=== PATIENT | female | born 1945 | race Caucasian/White ===

== ENCOUNTER 2018-01-02 14:09 | Observation (INO) | payer OTHER ==
--- NOTE | 2018-01-02 14:20 | EDPHY ---
H & P Time Seen by Provider: 01/02/18 14:19 HPI/ROS: CHIEF COMPLAINT: Syncope per patient's daughter HISTORY OF PRESENT ILLNESS: This is a 72-year-old female with a history of hypertension, nephrectomy for benign tumor, and a parathyroid problem, who is visiting [place] from [place]. She was at [place] with her daughter when she complained of dizziness, had some mild tremors, and then appeared to lose consciousness. Her daughter said that she was unresponsive for a matter of minutes, during which time her daughter and her daughter's boyfriend supported her in a seated/semi recumbent position. They tried rubbing her sternum but she remained unresponsive. For a portion of the time that they were supporting her her eyes were open but she did not seem to be aware. When she awakened she complained of dizziness. At the time of her arrival in the emergency department she tells me that she had a spinning sensation earlier that is still present but is improved. She also reports diffuse weakness and mild nausea. She denies chest pain or shortness of breath. She has no cardiac history. She tells me that her heart rate is always low, in the 60s. She is unable to name her medications. She sees a senior infrastructure engineer regularly and states that her kidney function is abnormal. She was once hospitalized with hyperkalemia but this has not been a problem recently. REVIEW OF SYSTEMS: A ten system review of systems was performed and is negative with the exception of the items mentioned in the HPI. Past medical history: 1. Hypertension 2. Parathyroid issue about which she is unable to provide more information 3. Gout 4. Trigeminal neuralgia Past surgical history: 1. Nephrectomy for benign tumor 2. Knee replacement 3. Hip surgery 4. Bowel obstruction requiring surgery Social history: She lives in [place]. She is here with her daughter. She does not use tobacco products. Needed Malian speaker. General Appearance: Alert. Vital signs reviewed. Bradycardic with a rate in the high 40s to mid 50s. Eyes: Pupils equal and round, no conjunctival injection, no discharge. Anicteric. ENT, Mouth: Mucous membranes are moist, no oropharyngeal erythema or edema. Neck: No lymphadenopathy, supple. Respiratory: Lungs are clear to auscultation; no wheezes, rales, or rhonchi. Cardiovascular: Bradycardic and regular; no murmur, rub, or gallop. Gastrointestinal: Abdomen is obese, soft and nontender, no masses or organomegaly, bowel sounds normal. Skin: Warm and dry, no rashes on exposed skin, normal color. Back: Nontender to palpation over the thoracolumbar spine. No CVAT. Extremities: No lower extremity edema, no calf tenderness or swelling. Neurological: Alert and oriented. Moving all four extremities easily and equally. PERRL. EOMI. Facial expressions symmetric. Psychiatric: Normal affect. Source: Patient, Family Constitutional: Initial Vital Signs Temperature (C) 36.2 C 01/02/18 14:09 Heart Rate 48 L 01/02/18 14:09 Respiratory Rate 14 01/02/18 14:09 Blood Pressure 139/75 H 01/02/18 14:09 O2 Sat (%) 98 01/02/18 14:09 O2 Delivery Mode Room Air O2 (L/minute) 2 Allergies/Adverse Reactions: Penicillins Allergy (Verified 01/02/18 14:13) Home Medications: Medication Instructions Recorded Allopurinol [Allopurinol 300 MG 150 mg PO DAILY@12 01/02/18 (RX)] Allopurinol [Allopurinol 300 MG 150 mg PO DAILY@12 01/02/18 (RX)] Calcitriol 0.5 mcg PO DAILY 01/02/18 Ferric Citrate [Auryxia] 1 tab PO TIDMEAL 01/02/18 Fluorometholone 1 drop EACHEYE BID 01/02/18 Labetalol HCl [Trandate 200 mg (*)] 200 mg PO BID 01/02/18 Paricalcitol [Paricalcitol] 1 mcg PO DAILY 01/02/18 Sevelamer Carbonate 800 mg PO TIDMEAL 01/02/18 Zolpidem Tartrate 5 mg PO HS PRN MDD SLEEP 01/02/18 amLODIPine BESYLATE [Norvasc 10 mg 10 mg PO DAILY 01/02/18 (*)] Medical Decision Making - Diagnostics Imaging Results: Imaging Impressions Carotid Doppler Study 01/03/18 05:36 Impression: 1. Widely patent bilateral tortuous carotid arteries. No plaque or flow- limiting stenosis. 2. Bilateral vertebral arteries are patent with antegrade flow. Measurement of carotid stenosis is based on velocity parameters that correlate the residual internal carotid diameter with [place] Symptomatic Carotid Endarterectomy Trial (NASCET) based stenosis levels. Head CT 01/03/18 11:27 Impression: 1. No acute intracranial hemorrhage or evidence of acute ischemia. 2. Minimal atrophy and minimal white matter disease within normal limits for age. ED Course/Re-evaluation: Patient arrived as a cardiac alert. On review of her 12 lead EKG she has some minimal ST elevation inferiorly that does not meet criteria for cardiac alert. She does have abnormal R-wave progression. Dr. Cooper Moreland has reviewed this EKG. He agrees that cardiac alert is not warranted at this point in time. Patient re-evaluated at 2:30 a.m. and at 2:45 p.m.. She continues to deny chest pain or shortness of breath. She has some mild nausea for which she received Zofran 4 mg IV. She denies abdominal pain and her abdomen remains soft and nontender. She does not have dizziness. She was able to stand at the bedside to use the bedside commode and did not feel lightheaded or dizzy. She continues to be bradycardic with heart rate in the 50s. 3:20 p.m.. No change in patient's condition or complaints. She continues to feel diffusely weak with mild nausea. She has not vomited. She denies chest pain. Her creatinine is 3.6. She is unable to provide a baseline number but states that her kidney function is always abnormal. She is not hyperkalemic. I also note that her phosphorus is elevated. Differential Diagnosis: Syncope including but not limited to vasovagal syncope, arrhythmia, dehydration , and blood loss. - Data Points Laboratory Results: Laboratory Results 01/03/18 03:29 01/03/18 03:29 Medications Given: Amlodipine Besylate (Norvasc) 10 mg PO DAILY MYKEL Stop: 07/02/18 08:59 Last Admin: 01/03/18 09:07 Dose: 10 mg Calcitriol (Calcitriol) 0.5 mcg PO DAILY MYKEL Stop: 07/02/18 08:59 Last Admin: 01/03/18 09:07 Dose: 0.5 mcg Fluorometholone (Fml) 1 drop EACHEYE BID MYKEL Stop: 07/01/18 20:59 Last Admin: 01/03/18 21:37 Dose: Not Given Hydralazine HCl (Apresoline) 10 mg PO TID MYKEL Stop: 07/02/18 15:59 Last Admin: 01/03/18 21:39 Dose: 10 mg Sodium Chloride (Ns) 1,000 mls @ 150 mls/hr IV CONT MYKEL Stop: 07/01/18 15:44 Last Admin: 01/02/18 23:00 Dose: 1,000 mls Miscellaneous Medication (Paricalcitol [Paricalcitol]) 1 mcg PO DAILY MYKEL Stop: 07/02/18 08:59 Last Admin: 01/03/18 10:38 Dose: Not Given Trazodone HCl (Trazodone) 100 mg PO HS MYKEL Stop: 07/01/18 20:59 Last Admin: 01/03/18 21:39 Dose: 100 mg Discontinued Medications Labetalol HCl (Trandate) 200 mg PO BID MYKEL Stop: 07/01/18 20:59 Last Admin: 01/02/18 20:13 Dose: 200 mg Miscellaneous Medication (Ferric Citrate [Auryxia]) 1 tab PO TIDMEAL [facility] Stop: 07/01/18 17:59 Last Admin: 01/02/18 17:40 Dose: Not Given Ondansetron HCl (Zofran) 4 mg IVP EDNOW ONE Stop: 01/02/18 14:36 Last Admin: 01/02/18 14:38 Dose: 4 mg Ondansetron HCl (Zofran) 4 mg IVP EDNOW ONE Stop: 01/02/18 15:25 Last Admin: 01/02/18 15:28 Dose: 4 mg Sevelamer HCl (Renagel) 800 mg PO TIDMEAL MYKEL Stop: 07/01/18 17:59 Last Admin: 01/02/18 17:41 Dose: Not Given Point of Care Test Results: Chemistry 01/02/18 14:24 POC Troponin I 0.00 ng/mL ng/mL (0.00-0.08) Departure - Departure Disposition: [facility] Acute Clinical Impression: Bradycardia Syncope Qualifiers: Syncope type: unspecified Qualified Code(s): R55 - Syncope and collapse Condition: Fair
[2018-01-02 14:33] LABS: PLATELET COUNT 268 10^3/uL (150-400)
[2018-01-02] MEDS ORDERED: ONDANSETRON 4 MG/2 ML VIAL IVP ONE ×2 (14:35→15:24)
[2018-01-02 14:44] LABS: INR 1.04 (0.83-1.16); PROTIME(PATIENT) 13.8 SEC (12.0-15.0)
[2018-01-02] MEDS ORDERED: ONDANSETRON 4 MG/2 ML VIAL ONE (15:24)
[2018-01-02] MEDS ORDERED: ONDANSETRON DISINTEGRATING 4 MG TAB PO PRN (15:42)
[2018-01-02] MEDS ORDERED: ACETAMINOPHEN 325 MG TAB PO PRN (15:42)
[2018-01-02] MEDS ORDERED: ONDANSETRON 4 MG/2 ML VIAL IVP PRN (15:42)
[2018-01-02] MEDS ORDERED: NS 1,000 ML IV SCH (15:45)
--- NOTE | 2018-01-02 15:51 | ASMTCMCOM ---
CM Note CM Note Notes: Pt presented to the Emergency Department via EMS s/p possible syncopal event with dizziness, nausea. History includes a nephrectomy secondary to a benign tumor, HTN, arthritis, knee and hip replacements, parathyroid. Pt is visiting her daughter Brittney. She is from [place], [place]. Per her dghtr, the pt lives independently. Offered pt and dghtr support; both currently deny needs. Discharge plan remains unclear at this time. CM will continue to follow. Discharge Plan: To be determined Date Signed: 01/02/2018 03:50 PM Electronically Signed By:Sneha Kim RN
--- NOTE | 2018-01-02 17:08 | PDGENHP ---
History and Physical - Chief Complaint Acute syncope - History of Present Illness Primary compliance manager: Dr. Aram Iqbal, in [facility] HPI: 72-year-old female presenting with acute syncopal episode characterized as complete loss of consciousness and unresponsiveness of several minutes duration without losing her pulse. Per patient and family report, she had been having what was seemingly a normal morning, visiting her daughter here in [place]. They had ventured to [place] and after they had eaten lunch , the patient was walking down to the stream. The patient began to experience some associated dizziness and she walked approximately 10 steps back to the picnic table, sat down, and then visibly lost consciousness and was unresponsive to her daughter. She had some shaking in her bilateral upper extremities, but this did not generalize into tonic-clonic motions. Her daughter attempted to arouse her with sternal rub comma verbal and tactile stimuli, without effect. The patient's son-in-law noted that she continued to have a pulse, but there was question whether she was breathing. She did not appear cyanotic. They kept her from falling backward, and she did not sustain any trauma. After approximately 45 min, her eyes opened, and she experienced lingering confusion, dizziness (characterized as vertiginous), and nausea. At that time, the patient noted that she had experienced urinary incontinence during the episode. Since the episode, the patient has not had any recurrent loss of consciousness, but she has felt persistently weak and nauseous. Of note, the patient did take all of her home medications on the morning of presentation and she did not eat breakfast or consume any fluids prior to her adventure to [place]. She did not engage in any particular physical exertion in [place], but her only oral intake of the day was with her lunch, which she consumed immediately prior to her onset of symptoms. History Information - Allergies/Home Medication List Allergies/Adverse Reactions: Penicillins Allergy (Verified 01/02/18 14:13) Home Medications: Allopurinol [Allopurinol 300 MG (RX)] 150 mg PO DAILY@12 01/02/18 [Last Taken ] Allopurinol [Allopurinol 300 MG (RX)] 150 mg PO DAILY@12 01/02/18 [Last Taken ] Calcitriol 0.5 mcg PO DAILY 01/02/18 [Last Taken 01/01/18] Ferric Citrate [Auryxia] 1 tab PO TIDMEAL 01/02/18 [Last Taken 01/01/18] Fluorometholone 1 drop EACHEYE BID 01/02/18 [Last Taken Unknown] Labetalol HCl [Trandate 200 mg (*)] 200 mg PO BID 01/02/18 [Last Taken 01/02/18 08:00] Paricalcitol [Paricalcitol] 1 mcg PO DAILY 01/02/18 [Last Taken 01/02/18] Sevelamer Carbonate 800 mg PO TIDMEAL 01/02/18 [Last Taken 01/01/18] Zolpidem Tartrate 5 mg PO HS PRN MDD SLEEP 01/02/18 [Last Taken 01/01/18] amLODIPine BESYLATE [Norvasc 10 mg (*)] 10 mg PO DAILY 01/02/18 [Last Taken ] I have personally reviewed and updated: family history, medical history, social history, surgical history - Past Medical History Additional medical history: Chronic kidney disease status post nephrectomy, reportedly "13%". Hypertension - Surgical History Additional surgical history: Nephrectomy. Knee surgery. Hip surgery. Small- bowel obstruction with subsequent mesh. Cornea surgery. Trigeminal nerve surgery - Family History Additional family history: Mother with bradycardia and subsequent permanent pacemaker, daughter with recent "cold" - Social History Smoking Status: Never smoked Alcohol Use: None Drug Use: None Additional social history: Independent ADLs, lives in [facility] Review of Systems Review of Systems: ROS: 10pt was reviewed & negative except for what was stated in HPI & below Constitutional: Reports: weakness Gastrointestinal: Reports: nausea Neurological: Reports: other (Dizziness, loss of consciousness) Physical Exam Physical Exam: Temp Pulse Resp BP Pulse Ox 36.2 C 52 L 16 132/81 H 94 01/02/18 14:09 01/02/18 16:19 01/02/18 16:19 01/02/18 16:19 01/02/18 16:19 O2 (L/minute) 2 Constitutional: no apparent distress, appears nourished, not in pain Eyes: PERRL, anicteric sclera, EOMI Ears, Nose, Mouth, Throat: moist mucous membranes, hearing normal, ears appear normal, no oral mucosal ulcers Cardiovascular: bradycardia, No systolic murmur, No JVD, No carotid bruit, No tachycardia, No edema Respiratory: no respiratory distress, no rales or rhonchi, clear to auscultation Gastrointestinal: normoactive bowel sounds, soft, non-tender abdomen, no palpable masses, other (Obese abdomen) Genitourinary: no bladder fullness, no bladder tenderness, other (No CVA tenderness) Neurologic: AAOx3, sensation intact bilaterally, No weakness (Motor strength 5/ 5 bilateral upper and lower extremities), No facial droop Psychiatric: interacting appropriately, not anxious, not encephalopathic, thought process linear, other (Concentration 10/17) Lab Data & Imaging Review 01/02/18 14:20 01/02/18 14:20 WBC 6.53 10^3/uL (3.80-9.50) 01/02/18 14:20 RBC 3.61 10^6/uL (4.18-5.33) L 01/02/18 14:20 Hgb 10.3 g/dL (12.6-16.3) L 01/02/18 14:20 Hct 31.6 % (38.0-47.0) L 01/02/18 14:20 MCV 87.5 fL (81.5-99.8) 01/02/18 14:20 MCH 28.5 pg (27.9-34.1) 01/02/18 14:20 MCHC 32.6 g/dL (32.4-36.7) 01/02/18 14:20 RDW 15.3 % (11.5-15.2) H 01/02/18 14:20 Plt Count 268 10^3/uL (150-400) 01/02/18 14:20 MPV 10.8 fL (8.7-11.7) 01/02/18 14:20 Neut % (Auto) 66.9 % (39.3-74.2) 01/02/18 14:20 Lymph % (Auto) 21.7 % (15.0-45.0) 01/02/18 14:20 Starke % (Auto) 6.3 % (4.5-13.0) 01/02/18 14:20 Eos % (Auto) 3.7 % (0.6-7.6) 01/02/18 14:20 Baso % (Auto) 1.1 % (0.3-1.7) 01/02/18 14:20 Nucleat RBC Rel Count 0.0 % (0.0-0.2) 01/02/18 14:20 Absolute Neuts (auto) 4.37 10^3/uL (1.70-6.50) 01/02/18 14:20 Absolute Lymphs (auto) 1.42 10^3/uL (1.00-3.00) 01/02/18 14:20 Absolute Monos (auto) 0.41 10^3/uL (0.30-0.80) 01/02/18 14:20 Absolute Eos (auto) 0.24 10^3/uL (0.03-0.40) 01/02/18 14:20 Absolute Basos (auto) 0.07 10^3/uL (0.02-0.10) 01/02/18 14:20 Absolute Nucleated RBC 0.00 10^3/uL (0-0.01) 01/02/18 14:20 Immature Gran % 0.3 % (0.0-1.1) 01/02/18 14:20 Immature Gran # 0.02 10^3/uL (0.00-0.10) 01/02/18 14:20 PT 13.8 SEC (12.0-15.0) 01/02/18 14:20 INR 1.04 (0.83-1.16) 01/02/18 14:20 APTT 21.7 SEC (23.0-38.0) L 01/02/18 14:20 D-Dimer 0.35 ug/mLFEU (0.00-0.50) 01/02/18 14:20 Sodium 139 mEq/L (135-145) 01/02/18 14:20 Potassium 4.1 mEq/L (3.3-5.0) 01/02/18 14:20 Chloride 105 mEq/L (97-110) 01/02/18 14:20 Carbon Dioxide 23 mEq/l (22-31) 01/02/18 14:20 Anion Gap 11 mEq/L (8-16) 01/02/18 14:20 BUN 72 mg/dL (7-23) H 01/02/18 14:20 Creatinine 3.6 mg/dL (0.6-1.0) H 01/02/18 14:20 Estimated GFR 12 01/02/18 14:20 Glucose 166 mg/dL (70-100) H 01/02/18 14:20 Calcium 10.8 mg/dL (8.5-10.4) H 01/02/18 14:20 Phosphorus 5.3 mg/dL (2.5-4.5) H 01/02/18 14:20 POC Troponin I 0.00 ng/mL (0.00-0.08) 01/02/18 14:24 Troponin I < 0.012 ng/mL (0.000-0.034) 01/02/18 14:20 Visualized and Interpreted Chest x-ray results: Yes Chest X-Ray results: no infiltrate, other (Mild cardiomegaly) Visualized and Interpreted EKG results: Yes EKG Interpretation: Positive for: other (Normal sinus rhythm with sinus bradycardia, less than [address] elevation in the inferior leads) Assessment & Plan Assessment: 72-year-old female presents with acute syncopal episode Plan: 1. Syncope. Acute, new problem this provider, further workup indicated. Possibly a combination of hypovolemia, baseline bradycardia, vasovagal episode in the setting of no oral intake on the morning of presentation and then lunch consumed immediately prior to onset of symptoms, potentially stimulating vagus nerve with stomach distension, resulting in more profound bradycardia than her baseline -discussed with Dr. Brianne Fernández in the emergency department, she reports that she has reviewed the EKG with Dr. Cooper Moreland and he does not believe that these less than [address] elevations in her EKG are indicative of a STEMI requiring cardiac intervention at this time -will monitor on telemetry overnight given her bradycardia, if evidence of heart block, recommend consulting Cardiology -check orthostatic vital signs -check echocardiogram and carotid ultrasounds -cycle cardiac enzymes -I counseled the patient and her family that if no particular etiology is revealed, that an outpatient 30 day event monitor through her primary provider in [place] would be appropriate 2. Suspected Chronic kidney disease stage 4. Patient reports baseline renal function of "13%" which would translate to stage IV-stage 5 chronic kidney disease if this is the patient's true eGFR. Her current EGFR is estimated at 12 with a creatinine of 3.6 and BUN of 72 but without hyperkalemia -will order outside records from her primary a compliance manager's office to compare renal function at baseline, she reportedly had labs drawn approximately 10 days ago and was told that her renal function was stable and at her baseline -will give empiric IV fluids overnight given that there may have been a hypovolemic component to her presentation in the setting of poor oral intake prior to her onset of symptoms 3. Hypertension. Continue patient's calcium channel kari tomorrow a.m. If blood pressure permits Diet. Renal Prophylaxis. Moderate risk, SCDs, hold pharm in case any procedure is indicated Code. Full Disposition. Anticipated discharge is 01/03, pending further workup as outlined above.
[2018-01-02] MEDS ORDERED: Ferric Citrate [Auryxia] PO SCH (18:00)
[2018-01-02] MEDS ORDERED: SEVELAMER HCL 800 MG TAB PO SCH (18:00)
[2018-01-02] MEDS: traZODone 100 MG TAB PO SCH (20:14)
[2018-01-02] MEDS ORDERED: LABETALOL HCL 200 MG TAB PO SCH (21:00)
[2018-01-02] MEDS: FLUOROMETHOLONE 5 ML OPHT.BTL EACHEYE SCH (21:37)
--- NOTE | 2018-01-02 22:10 | CPEKG ---
Test Reason : OPEN Blood Pressure : / mmHG Vent. Rate : 050 BPM Atrial Rate : 050 BPM P-R Int : 229 ms QRS Dur : 084 ms QT Int : 473 ms P-R-T Axes : 041 050 060 degrees QTc Int : 432 ms Sinus rhythm Prolonged LA interval Abnormal R-wave progression, early transition ST elevation, consider inferior injury Confirmed by Brianne Fernández ([id number]) on 01/02/2018 10:09:51 PM Referred By: Confirmed By:Brianne Fernández
[2018-01-03 03:44] LABS: PLATELET COUNT 260 10^3/uL (150-400)
[2018-01-03] MEDS: CALCITRIOL 0.25 MCG CAP PO SCH (09:07)
[2018-01-03] MEDS: FLUOROMETHOLONE 5 ML OPHT.BTL EACHEYE SCH ×2 (09:08→21:37)
[2018-01-03] MEDS: PARICALCITOL 1 MCG PO SCH (10:38)
--- NOTE | 2018-01-03 12:35 | ECHO ---
[email or web address] [address] [address] Main: [phone] Fax: [email or web address] Echocardiogram Name: LINDSEY NAPOLES MR#: [id number] Study Date: 01/03/2018 Study Time: 10:31 AM Date of : 1945 Age: 72 year(s) Height: 160 cm (63 in.) Weight: 90.72 kg (200 lb.) BSA: 1.93 m2 Gender: Female Examination: Echo Indication: Cardiac: syncope Image Quality: Contrast: Requested by: Maury Padilla BP: 149 mmHg/77 mmHg Heart Rate: Rhythm: Indication: Cardiac: syncope Procedure Staff Customer Services Coordinator: Sharan Sykes RDCS Reading Physician: Mc Arboleda MD Requesting Provider: Conclusions: Normal size left ventricle. No LV hypertrophy. Normal global systolic LV function. EF is 75 %. No regional wall motion abnormality. Grade 1 diastolic dysfunction (abnormal relaxation). Normal RV function. The left atrium is normal in size. The right atrium is normal in size. Minimal aortic cusp calcification is noted. Trivial tricuspid valve regurgitation. No pericardial effusion. Measurements: Chambers Valvular Assessment AV/MV Valvular Assessment TV/PV Normal Normal Normal Name Value Range Name Value Range Name Value Range Ao Nanci (MM): 2.9 cm (2.2 cm-3.7 AV Vmax: 1.81 m/s (1 m/s-1.7 PV Vmax: 0.98 m/s (0.6 m/s-0.9 cm) m/s) m/s) IVSd (2D): 0.8 cm (0.6 cm-1.1 AV maxP mmHg ( - ) PV PGmax: 4 mmHg ( - ) cm) LVOT Vmax: 1.30 m/s (0.7 m/s-1.1 LVDd (2D): 4.6 cm (3.9 cm-5.3 m/s) cm) MV E Vmax: 0.91 m/s ( - ) LVDs (2D): 2.6 cm (2.1 cm-4 MV A Vmax: 1.12 m/s ( - ) cm) MV E/A: 0.81 ( - ) LVPWd (2D): 0.9 cm ( - ) LVEF (2D): 75 (>=54 %) Continued Measurements: Chambers Valvular Assessment AV/MV Patient: LINDSEY NAPOLES Study Date: 01/03/2018 Page 1 of 2 10:31 AM Name Value Name Value LADs Lon.1 cm MV E' Septal: 0.06 m/s LA Area: 15.6 cm2 MV E/E' Septal: 15.00 LA Volume: 49 ml MV E/E' Lateral: 12.10 LA Volume Index: 25.4 ml/m2 Findings: Left Ventricle: Normal size left ventricle. No LV hypertrophy. Normal global systolic LV function. EF is 75 %. No regional wall motion abnormality. Grade 1 diastolic dysfunction (abnormal relaxation). Right Ventricle: Normal size right ventricle. Normal RV function. Left Atrium: The left atrium is normal in size. Normal appearing atrial septum. Right Atrium: The right atrium is normal in size. Mitral Valve: The mitral valve is normal in appearance and function. Trivial mitral valve regurgitation. Aortic Valve: Minimal aortic cusp calcification is noted. The aortic valve is tri-leaflet. There is no aortic valve regurgitation. Tricuspid Valve: The tricuspid valve is normal in appearance and function. Trivial tricuspid valve regurgitation. Pulmonic Valve: The pulmonic valve is normal in appearance and function. Aorta: The aorta is normal. Pericardium: No pericardial effusion. (No Signature Object) Patient: LINDSEY NAPOLES Study Date: 01/03/2018 Page 2 of 2 10:31 AM [id number]
--- NOTE | 2018-01-03 13:33 | HOSPPROG ---
Hospitalist Progress Note Assessment/Plan: # syncope - concerning in the setting of bradycardia - will hold labet and follow on tele overnight - other w/u unrevealing # CKD - suspect at baseline; attempting to get outside records to confirm # htn - cont amlodipine, hold labetalol, start hydralazine Subjective: feels well today; no additional syncope Objective: Vital Signs Temp Pulse Resp BP Pulse Ox 36.5 C 57 L 18 141/69 H 93 01/03/18 12:00 01/03/18 12:00 01/03/18 12:00 01/03/18 12:00 01/03/18 12:00 Laboratory Results 01/03/18 03:29 01/03/18 03:29 01/02/18 01/03/18 01/04/18 05:59 05:59 05:59 Intake Total 2425 1000 Output Total 200 Balance 2225 1000 PT 13.8 SEC (12.0-15.0) 01/02/18 14:20 INR 1.04 (0.83-1.16) 01/02/18 14:20 chart reviewed tele reviewed US reviewed - Physical Exam Constitutional: no apparent distress, appears nourished Cardiovascular: no murmur, rub, or gallop, bradycardia Respiratory: no respiratory distress, no rales or rhonchi, clear to auscultation Gastrointestinal: soft, non-tender abdomen, No guarding, No rebound, No distension ICD10 Worksheet Patient Problems: Problems Problem Status Onset Syncope Acute
--- NOTE | 2018-01-03 14:06 | GCON ---
CARDIOLOGY CONSULTATION CHIEF COMPLAINT: Syncope. HISTORY OF PRESENT ILLNESS: The patient is a 72-year-old patient with past medical history significa nt for hypertension and end-stage renal disease and history of prior nephrectomy who presents to the hospital for evaluation status post a syncopal event. The patient lives in [place] where she is foll owed by a watch caser and direct care worker and then came here to visit her daughter who lives in [place]. Zuri reyes went to the [facility] and went to lunch. After lunch, [place] then went [place] back up and began to feel faint and dizzy. She denies history of chest p ain or shortness of breath. She sat down on the picnic table bench and put her head in her hands. H er daughter noticed after was in communication with her where she felt lightheaded, dizzy, and nausea conrado as well as flushed. The patient then became unresponsive and the daughter noted her to have some minor tremulous-like activity in her arms. When they tried to have her respond, she became unrespon sive and then slumped away from the table. The daughter and the daughter's boyfriend supported her a nd noted the patient's eyes to be wide open and not moving or blinking with a blank stare. It was no t evident that she was even alive. The boyfriend felt for the patient's pulse and noted it to be str tamara and regular at that time. Ultimately, the patient's eyes began to flutter and she became awake. EMS was called, and the patient was taken to the hospital for further evaluation. At the time of ar rival to the hospital, she was noted to be bradycardic in the 40s, and an EKG was obtained by Dr. Yvette ocampo which did not reveal evidence of an acute or subacute coronary syndrome in progress. A cardiac a lert was not called, but they did have me to see the patient in consultation on the following clinic day after a period of telemetry monitoring. At the time of my evaluation, the patient is awake and a lert and cooperative with her examination. She is known to have adverse reaction or allergy to penic illin. MEDICATIONS: 1. Allopurinol 150 mg p.o. daily. 2. Calcitriol 0.5 mcg p.o. daily. 3. Varix citrate 1 tablet p.o. t.i.d. 4. Fluorometholone 1 drop to each eye b.i.d. 5. Labetalol Trandate 200 mg p.o. b.i.d. 6. Paricalcitol 1 mcg p.o. daily. 7. Sevelamer carbonate 800 mg p.o. t.i.d. 8. Zolpidem tartrate 5 mg p.o. q.h.s. 9. Amlodipine 10 mg daily. 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 She reportedly has 13% to 17% of her renal function at the present time. She has history of hyperten lucita. PAST SURGICAL HISTORY: Pertinent for nephrectomy as noted, prior knee surgery, hip surgery, a small bowel obstruction with mesh, corneal operation, and trigeminal nerve surgery for trigeminal neuralgia . FAMILY HISTORY: Pertinent for mother with bradycardia who required permanent pacemaker and is curren tlgiancarlo alive in a assisted in [place] and is 98 years old. Her grandmother also had a similar synco pal event to our patient and was discharged from the hospital in [place] and 2 weeks later of a m assive stroke. 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 She has never smoked. She does not use alcohol or drugs. She denies use of any illicit drugs here in [place]. REVIEW OF SYSTEMS: A 10-point review of systems was reviewed and negative except for as the HPI. Luz Maria freeman has weakness and occasional nausea and has noted the dizziness and subsequent loss of consciousness but has never had a prior syncopal event. PHYSICAL EXAMINATION: IN GENERAL: She is an obese lady in no apparent distress lying in the [facility] bed. She is cooperative with the examination and is not in pain. HEENT: Her eyes revealed pupils which are equal, round, and reactive to light. She does have changes consistent with prior corneal surgery. Anicteric sclera. Her extraocular motion is intact. Her ears, nose, mouth, and throat rev eal moist mucous membranes. Her hearing seems appropriate for her age. She has no oral ulcers. HEA RT: Reveals bradycardia with a soft systolic murmur consistent with aortic sclerosis. There is no j ugular venous distention. No carotid bruit and no peripheral edema. LUNGS: She has no respiratory distress, rales, or rhonchi. Her lungs are clear to auscultation bilaterally. ABDOMEN: Obese with positive bowel sounds, nondistended, and nontender. EXTREMITIES: Warm, dry, and well perfused witho ut significant peripheral edema. NEUROLOGIC: Exam reveals no motor weakness in the upper extremitie s and no facial droop. Her tongue protrudes to the midline. PSYCHIATRIC: She is interacting approp riately. She is not anxious or cephalopathic. Her thought process is linear. LABORATORY DATA: Anemia with H and H of 10.3 and 31.6, platelet count is 268. Her white count is no t elevated. Her Chem-7 reveals sodium 139, potassium 4.1, BUN and creatinine are 72 and 3.6 with a p latelet count of 166. Her EKG reveals normal sinus rhythm with early R-wave transition and minimal J-point elevation in II, III, and AVF which is inconsistent with myocardial injury. Her chest x-ray reveals no infiltrate and other than mild cardiomegaly is unremarkable. The echocardiogram images were reviewed directly by me and revealed aortic sclerosis with normal pres erved heart muscle function without segmental wall motion abnormalities. IMPRESSION/PLAN: This patient has had what appears to be the first syncopal event of her life which may well represent a vasovagal event. She is on labetalol with relatively significant bradycardia an d I think that medication should be held and probably discontinued. She is hypertensive and does nee d to be on blood pressure medication. I would consider continuing her Norvasc and possibly adding a peripheral vasodilator per present to help reduce her blood pressure and, hopefully, induce somewhat of a reflex tachycardia. Her troponin has remained negative and, therefore, the likelihood of this r epresenting acute coronary syndrome is quite low especially since the patient has had no symptoms justin t could be attributed to that diagnosis other than nausea which would be a somewhat atypical presenta tion for myocardial ischemia. The patient has undergone carotid ultrasound which is negative and, at this point, has had a head CT which also reveals age-appropriate changes without evidence of a prior stroke. There is no acute intracranial hemorrhage or evidence of acute ischemia. There is atrophy and minimal white matter disease within normal limits for the patient's age. It may be prudent to continue a period of monitoring. On the telemetry monitoring, she has not had s ignificant heart block or life-threatening bradycardia. She certainly has evidence of sinus bradycar benjy without evidence of a tachy dysrhythmia or frequent ventricular ectopy. It would be my suggestio n that if the patient is able to be discharged that she be evaluated on a longer period of monitoring such as a 30-day event monitor to rule out long sinus arrest and pauses as a cause for the patient's clinical event. She does have abnormal electrolytes specifically with an elevated calcium level at 10.8, repeated this morning at 9.9 and more normal. Phosphorus level down from 5.3 to 4.5 and this, of course, could be playing a role. She is not hyper or severely hypokalemic at the present time. T his morning's potassium was measured at 3.7. I am concerned that the patient may have underlying con duction system abnormalities with extenuation of those abnormalities with the use of oral labetalol, and I think it might be reasonable for the patient to have a longer period of monitoring when she has returned home to [place]. Certainly, if she has recurrent clinical event off the labetalol, then th e patient should be readmitted to the hospital with a longer period of monitoring to ensure that she is not having sinus arrest or pauses or evidence of significant heart block as a cause for her clinic al symptoms. Copy requested to: BETTE /[id number]/MODL
--- NOTE | 2018-01-03 15:36 | ASMTCMCOM ---
CM Note CM Note Notes: 01/03/2018 Case Management Note Met pt and daughter Brittney [phone] during rounds this morning. Pt plan to fly back to [facility] on Thursday. No case management d/c needs identified. Pt is well resourced in the [place] area. Case Management d/c poc: independent with follow up as directed. Case Management available if needs change. Date Signed: 01/03/2018 03:35 PM Electronically Signed By:Cynthia Morgan RN
[2018-01-03] MEDS: hydrALAZINE 10 MG TAB PO SCH ×2 (16:26→21:39)
--- NOTE | 2018-01-03 16:32 | PDMN ---
Medical Necessity Medical necessity: MCG M510 supraventricular arrhythmias: syncope with LOC/ unresponsiveness for several minutes with persistent bradycardia with further monitoring req > 2 MN, in pt with hx of CKD s/p nephrectomy, HTN status changed to INPT 01/03/18 @ 13:26
[2018-01-03] MEDS: traZODone 100 MG TAB PO SCH (21:39)
[2018-01-04 07:58] VITALS: BP 146/72
[2018-01-04] MEDS: hydrALAZINE 10 MG TAB PO SCH (08:38)
[2018-01-04] MEDS: CALCITRIOL 0.25 MCG CAP PO SCH (08:38)
[2018-01-04] MEDS: PARICALCITOL 1 MCG PO SCH (08:39)
[2018-01-04] MEDS: FLUOROMETHOLONE 5 ML OPHT.BTL EACHEYE SCH (08:39)
--- NOTE | 2018-01-04 11:06 | GDS ---
DIAGNOSES: 1. Syncope. 2. Bradycardia. 3. Chronic kidney disease at baseline. 4. Hypertension. HOSPITAL COURSE: This is a 72-year-old female who had an episode of syncope. She was found to be br adycardic in the 40s when she presented to the emergency department. She is on labetalol. Notably, she is visiting her daughter and permanently resides in [place]. Workup here has been unremarkable inc luding carotid ultrasounds, echocardiogram, head CT scan, chest x-ray, EKG. Her labetalol has been h eld and her heart rate has come up to the 60s. I ambulated her on the day of discharge and her heart rate oziel to the 70s with slow ambulation. Cardiology has been involved in her care. I do not elle mmend a pacemaker at this time. We do recommend that she get an outpatient 30-day event monitor. Fo r her hypertension, I have stopped her labetalol, continued her amlodipine, and started her on hydral azine 10 mg p.o. three times daily. She has been given a prescription for this. This may need to be up titrated. She has chronic kidney disease, I reviewed her labs from [place] and her creatinine is at baseline. It was 3.2 here. I reviewed her telemetry and this showed no pauses, merely ongoing sinus rhythm with some sinus millie cardia. She has been diagnosed with sleep apnea. Was found to have nocturnal hypoxia here. She has had prob lems tolerating CPAP mask in the past. I recommend that she work with pulmonology to find a mask justin t she can tolerate. BILLING: I spent more than 30 minutes on the day of discharge coordinating care. FOLLOWUP: She needs to establish with a primary care physician, to address her sleep apnea, as well as get a 30-day event monitor. /[id number]/MODL
== END 2018-01-04 12:00 | disposition home or self-care (01) ==
LOC: INTOOBSV 15:37 → F2W 17:02 → OBSVTOIN 01-03 13:26 → INTOOBSV 01-03 13:26
PROVIDERS: ADMIT Internal Medicine; ATTEND Internal Medicine
DX: R55 Syncope and collapse (principal); R00.1 Bradycardia, unspecified; I12.9 Hypertensive chronic kidney disease with stage 1 through stage 4 chronic kidney disease, or unspecified chronic kidney disease; N18.4 Chronic kidney disease, stage 4 (severe); Z90.5 Acquired absence of kidney; M10.9 Gout, unspecified; Z96.659 Presence of unspecified artificial knee joint; E66.9 Obesity, unspecified; G47.33 Obstructive sleep apnea (adult) (pediatric); Z68.36 Body mass index [BMI] 36.0-36.9, adult
CPT/HCPCS: 70450; 71045; 93005; 93306; 93880; 96374; 96376; 99285; G0378; J2405; 84484-PO